=== PATIENT | male | born 1950 | race Caucasian/White ===

== ENCOUNTER 2019-02-04 19:26 | Emergency (ER) | payer OTHER, MEDICARE ==
[2019-02-04] MEDS ORDERED: Lidocaine 1% 10 ML MDV ONE (21:10)
--- NOTE | 2019-02-05 08:00 | ER ---
DATE OF SERVICE: 02/04/2019 REASON FOR EMERGENCY ROOM VISIT: Impaled lamar, left pinky finger. HISTORY: This 68-year-old man was fishing, when he impaled one hook of a treble hook into the tip of the left pinky finger. He came in with the lure still attached to the hook. He was in no acute distress. The patient has had a tetanus toxoid within the past 5 years. ALLERGIES: HE DENIES ANY ALLERGIES. PHYSICAL EXAMINATION: EXTREMITIES: He has a hook impaled onto the volar aspect of the distal phalanx of the left little finger. Distal capillary refill and sensation are intact. Impression: Impaled fish hook, left 5th finger. FURTHER EMERGENCY ROOM COURSE: Removal of the hook was recommended, and he wholeheartedly agreed. 1% Xylocaine without epinephrine was used to achieve local anesthesia after prepping it with Betadine solution. Once adequate local anesthesia was achieved , the hook was cut off from the rest of the treble hook, and I drove it through the skin without any difficulty and removed it intact. Antibiotic ointment was applied and a Band- Aid applied. He was told to keep it covered for the next 24 hours, and tomorrow he can remove it and soak his hand in Epsom salts and warm water a few times. He should keep that area clean and dry for the next couple of days. Symptoms and signs of infection were discussed with him. He understands and agrees to this plan. All questions were answered. PETER /[id number] KARYNA
== END 2019-02-04 21:20 | disposition home or self-care (01) ==
LOC: LB.ED 19:26
DX: S60.457A Superficial foreign body of left little finger, initial encounter (principal); W45.8XXA Other foreign body or object entering through skin, initial encounter
CPT/HCPCS: 99283; J2001